=== PATIENT | male | born 1980 | race Hispanic/Latino ===

== ENCOUNTER 2017-10-29 11:42 | Day surgery (SDC) | payer BC ==
[2017-10-28 15:13] VITALS: BMI 25.0
[2017-10-29 12:28] VITALS: RESP 18
[2017-10-29] MEDS ORDERED: cefTRIAXone IV 1 gm in Dextros 50 ML IVPB ONE (12:29)
[2017-10-29] MEDS ORDERED: Bupivacaine 0.5% Inj(30mL) ONE (12:29)
[2017-10-29] MEDS ORDERED: Propofol 10 mg/ml Inj (20 ML) ONE (13:13)
[2017-10-29] MEDS ORDERED: Midazolam 2 MG/2 ML VIAL ONE (13:14)
[2017-10-29] MEDS ORDERED: ePHEDrine 50 mg/ml Inj ONE (13:15)
[2017-10-29] MEDS ORDERED: Lidocaine 4% (Laryng-O-Jet) Kit MM ONE (13:16)
[2017-10-29] MEDS ORDERED: Succinylcholine 200 mg/10 ml Inj IV ONE (13:16)
[2017-10-29] MEDS ORDERED: Lactated Ringer's 1,000 ML IV ONE ×2 (13:45→14:31)
[2017-10-29] MEDS ORDERED: cefTRIAXone (Rocephin) 1 gm Inj IVPB ONE (14:00)
[2017-10-29] MEDS ORDERED: Lidocaine 2% MPF (5 ml) Inj ONE (14:11)
[2017-10-29] MEDS ORDERED: Dexamethasone 4 mg/1 ml ONE (14:20)
[2017-10-29] MEDS ORDERED: Lidocaine 1% Inj (20ml) ONE (14:25)
[2017-10-29] MEDS ORDERED: Bupivacaine 0.5% 50 ML IJ ONE (14:29)
[2017-10-29] MEDS ORDERED: Lidocaine 1% Inj (20ml) IJ ONE (14:29)
[2017-10-29] MEDS ORDERED: Liquid Adhesive TOP ONE ×2 (14:38)
[2017-10-29] MEDS ORDERED: Lactated Ringer's 1,000 ML IV SCH (15:00)
--- NOTE | 2017-10-29 16:41 | OP ---
PROCEDURE DATE: 10/29/2017 PREOPERATIVE DIAGNOSIS: Right testicular mass. POSTOPERATIVE DIAGNOSIS: Right testicular mass. PROCEDURE PERFORMED: Right radical orchiectomy. DESCRIPTION OF PROCEDURE: The patient was placed on the operating room table in a supine position. The area of the groin was draped and prepped in a sterile manner. At this time, the mass was clearly identified probably around 2 cm in size on the right testicle, probably confluent with it. I made an incision in the groin and opened through the fascial layers. I then was able to push the testicle. Through blunt dissection, I freed the testicle in the scrotal cavity and then pushed it though this opening. I then freed the gubernacular attachments to the scrotal skin and then ligated the vas first and then the vascular structure second. They were taking separately and once this was done and the testicle was removed off the operative field, I then went back and then a 2-layer closure, first with 3-0 Vicryl did a 2-layer closure. The skin was finally approximated with Monocryl 4-0 and a Steri Strip was placed over that wound site. All the bleeding that was noted during the procedure was cauterized, but estimated blood loss to be less than 10 mL throughout the entire procedure. There was a small area that appeared from the cautery of the gubernaculum that I could see a blanched area on the scrotal skin, so I placed two 4-0 chromic sutures in that area. Again, at the end of the procedure, there was no active bleeding noted. A supportive scrotal support was placed prior to leaving the operating room and the patient was taken from the operating room in good condition. Kin Woods MD
[2017-10-29 18:12] VITALS: TEMP 98
[2017-10-29] MEDS ORDERED: Oxycodone/Acetaminophen 5/325 mg Tab PO ONE ×2 (18:14→18:25)
[2017-10-29 19:44] VITALS: BP 130/70; PULSE 71; O2SAT 100
--- NOTE | 2017-10-30 04:58 | DS ---
The patient was admitted today for elective right radical orchiectomy for a right testicular mass. The patient underwent the procedure without any complications. Postoperatively, the patient is stable. He will be discharged home with a prescription for Cipro and Ultracet. He will follow up in my office in two days for an initial evaluation and then from there, decide on further testings. Kin Woods MD
== END 2017-10-29 19:48 | disposition home or self-care (01) ==
LOC: H.OPSURG 11:42
PROVIDERS: ATTEND Urology
DX: C62.90 Malignant neoplasm of unspecified testis, unspecified whether descended or undescended (principal)
CPT/HCPCS: 54530; 88305; J0330; J0696; J1100; J1170; J2250; J2405; J2704; J3010; J7120